=== PATIENT | male | born 1955 | race Caucasian/White ===

== ENCOUNTER 2020-12-01 08:25 | Outpatient (CLI) | payer BC | END 2020-12-01 08:26 | disposition home or self-care (01) | LOC: CSHMRI 08:25 | PROVIDERS: ATTEND Physical Medicine & Rehabilitation | DX: M47.812 Spondylosis without myelopathy or radiculopathy, cervical region (principal); M50.322 Other cervical disc degeneration at C5-C6 level; M48.02 Spinal stenosis, cervical region | CPT/HCPCS: 72141 ==

== ENCOUNTER 2025-08-23 07:50 | Outpatient (CLI) | payer BC, MEDICARE ==
[2025-08-23 09:01] LABS: Estimated GFR - POC 60.0
== END 2025-08-23 07:51 | disposition home or self-care (01) ==
LOC: CSHCT 07:50
PROVIDERS: ATTEND Specialist
DX: C64.9 Malignant neoplasm of unspecified kidney, except renal pelvis (principal); Z90.5 Acquired absence of kidney
CPT/HCPCS: 71046; 74178; 82565